=== PATIENT | female | born 1980 | race Caucasian/White ===

== ENCOUNTER 2017-09-01 11:09 | Emergency (ER) | payer MEDICAID, OTHER ==
[~2017-09-01] VITALS: Ht 165.1 cm; Wt 81.6 kg
[2017-09-01 11:41] VITALS: BP 152/98
== END 2017-09-01 12:53 | disposition home or self-care (01) ==
LOC: ER 11:09
DX: M77.9 Enthesopathy, unspecified (principal); Z88.5 Allergy status to narcotic agent; Z88.8 Allergy status to other drugs, medicaments and biological substances
CPT/HCPCS: 73080